=== PATIENT | female | born 1970 | race Caucasian/White ===

== ENCOUNTER 2019-06-12 13:00 | Inpatient (IN) | payer OTHER ==
[~2019-06-12] VITALS: Ht 157.5 cm; Wt 59.0 kg
--- NOTE | 2019-06-12 13:48 | NUR ---
TOOK OVER PT CARE. PT BIB RA, WAS FOUND SLEEPING IN TENT IN ALLEY WITH ETOH NOTED ON BREATH. PLACED ON MONITOR AND PULSE OX. AWAITING MD ORDERS. WILL CONTINUE TO MONITOR. VSS.
[2019-06-12] MEDS ORDERED: IV NS 0.9% 1,000 ML BAG IV ONE (14:00)
--- NOTE | 2019-06-12 14:03 | NUR ---
LABS COLLECTED BY RETAIL STOCK CLERK
[2019-06-12 14:10] LABS: BASOPHILS # (AUTO) 0.1 /CMM (0.0-0.2); BASOPHILS % (AUTO) 1.3 % (0.0-2.0); EOSINOPHILS % (AUTO) 1.1 % (0.0-6.0); HEMATOCRIT 34 % (33-45); LYMPHOCYTES # (AUTO) 1.1 /CMM (0.8-4.8); LYMPHOCYTES % (AUTO) 22.5 % (20.0-44.0); MEAN CORPUSCULAR HGB CONC 33 g/dl (31.0-36.0); MEAN CORPUSCULAR VOLUME 97 fL (82-100); MONOCYTES # (AUTO) 0.5 /CMM (0.1-1.30); MONOCYTES % (AUTO) 10.6 % (2.0-12.0); NEUTROPHILS # (AUTO) 3.3 /CMM (1.8-8.9); NEUTROPHILS % (AUTO) 64.5 % (43.0-81.0); PLATELET COUNT (AUTO) 293 /CMM (150-450); RED BLOOD CELL COUNT(AUTO) 3.48 MIL/uL (4.0-5.2); WHITE BLOOD COUNT (AUTO) 5.1 K/uL (4.3-11.0)
--- NOTE | 2019-06-12 14:13 | NUR ---
URINE COLLECTED AND SENT TO LAB
[2019-06-12 14:19] LABS: APPEARANCE,URINE Clear (CLEAR); BILIRUBIN,URINE Negative (NEGATIVE); BLOOD, URINE Small Ery/uL (NEGATIVE); COLOR,URINE Yellow (YELLOW); KETONES,URINE Negative (NEGATIVE); LEUKOCYTE ESTERASE ,URINE Negative (NEGATIVE); NITRITE, URINE Negative (NEGATIVE); PH,URINE 6.5 (5.0-8.0); PROTEIN,URINE Negative (NEGATIVE); UGLUCOSE Negative (NEGATIVE); UROBILINOGEN,URINE 0.2 EU/dL (0.2)
[2019-06-12 14:24] LABS: CALCIUM, SERUM 8.3 mg/dL (8.5-10.1); CARBON DIOXIDE 28 mmol/L (21-32); CHLORIDE 104 mmol/L (98-107); CREATININE 0.5 mg/dL (0.6-1.3); GLUCOSE 94 mg/dL (74-106); SODIUM SERUM 142 mmol/L (136-145); UREA NITROGEN, BLOOD 12 mg/dL (7-18)
[2019-06-12 14:29] LABS: ALANINE AMINOTRANSFERASE 41 U/L (12-78); ALBUMIN 3.3 g/dL (3.4-5.0); ALCOHOL, BLOOD 477 mg/dL (0-0); ALKALINE PHOSPHATASE 68 U/L (46-116); ASPARTATE AMINOTRANSFERASE 42 U/L (15-37); BILIRUBIN,TOTAL 0.1 mg/dL (0.2-1.0); SALICYLATE 0.7 mg/dL (2.8-20.0); TOTAL PROTEIN, SERUM 7.4 g/dL (6.4-8.2)
[2019-06-12 14:30] LABS: ACETAMINOPHEN 0 ug/ml (10-30)
--- NOTE | 2019-06-12 14:41 | NUR ---
PATIENT AWAKE, NOT GIVING HER NAME. VSS. RESTING COMFORTABLY.
--- NOTE | 2019-06-12 14:42 | NUR ---
PT WAS TRYING TO SPEAK, VERY SLURRED. PT APPEARS TO BE CONFUSED. INCOHERENT.
--- NOTE | 2019-06-12 14:45 | NUR ---
PT STATED HER NAME IS OSKAR MERCADO AND 1970.
[2019-06-12 14:47] LABS: BACTERIA,URINE Few /HPF (None Seen); SQUAMOUS EPITHELIAL CELL,UR Few /HPF (None Seen); WBC,URINE 0-2 /HPF (0-3)
--- NOTE | 2019-06-12 14:48 | NUR ---
PT BROUGHT TO CT
--- NOTE | 2019-06-12 14:59 | NUR ---
PT BACK FROM CT
[2019-06-12] MEDS ORDERED: POTASSIUM CL. PREMIX PERIPHER. 50 ML ONE ×4 (15:27→18:59)
[2019-06-12] MEDS: POTASSIUM CL. PREMIX PERIPHER. 50 ML IV SCH ×4 (15:40→19:05)
--- NOTE | 2019-06-12 15:43 | NUR ---
CALLED DR. PEREZ... ASKED FOR PICS TO BE SENT TO HIM.
--- NOTE | 2019-06-12 16:52 | NUR ---
PT RESTING IN BED, VSS.
--- NOTE | 2019-06-12 17:12 | NUR ---
PT SAT 90% ON ROOM AIR. PLACED ON 2L NC. NO SAT 98%
--- NOTE | 2019-06-12 17:59 | NUR ---
PT AWAKE, PT STATED HER NAME "KARLA MERCADO", YEAR, AND PRESIDENT. S.
[2019-06-12] MEDS ORDERED: ZOLPIDEM TARTRATE 5 MG TABLET PO PRN (18:00)
[2019-06-12] MEDS ORDERED: MAG HYDROX/AL HYDROX/SIMETH 30 ML UDC PO PRN (18:00)
[2019-06-12] MEDS ORDERED: ONDANSETRON HCL/PF 4 MG/2 ML VIAL IVP PRN (18:00)
[2019-06-12] MEDS ORDERED: MAGNESIUM HYDROXIDE 30 ML UDC PO PRN (18:00)
[2019-06-12] MEDS ORDERED: Z GUARD REMEDY 2 OZ OINT TP PRN (18:00)
--- NOTE | 2019-06-12 18:36 | NUR ---
GOT ICU BED 259
--- NOTE | 2019-06-12 19:20 | NUR ---
REPORT GIVEN TO RICH HUYNH FOR [facility]
--- NOTE | 2019-06-12 19:57 | NUR ---
PT TRANSFERED PER [facility]S PROTOCOL.
[2019-06-12 20:00] VITALS: BP 117/76
[2019-06-12] MEDS: IV NS 0.9% 1,000 ML IV SCH (20:03)
--- NOTE | 2019-06-12 20:30 | NUR ---
RN NOTES ADMITTED A 40 YEARS OLD FEMALE PATIENT FROM ER ALERT ORIENTED X 2-3 DX WITH SUBDURAL HEMATOMA WHICH SHOWS FROM CT HEAD. UNDER DR. QURESHI. PATIENT IS MORE AWAKE ABLE TO MENTION NAME "JUANCARLOS WOODY" AND BIRTHDATE WAS 1970. FOLLOWS COMMAND. NSR ON TELE MONITOR. WITH IV SITE ON LAC G 18 AND RAC G 20 INTACT AND PATENT. NEURO CHECKED DONE . PATIENT ABLE TO MOVE BUE AND BLE WITH MILD WEAKNESS IN LE. WANTED TO HAVE DRINKS, INFORMED DR. PEDRO MANAGER HEART REGARDING DIET WILL FOLLOW UP ORDER. KEPT PT CLEAN AND DRY. WILL MONITOR CLOSELY.
[2019-06-12 21:00] VITALS: BP 112/77
[2019-06-12 22:00] VITALS: BP 100/77
[2019-06-12 23:00] VITALS: BP 105/62
[2019-06-13] VITALS (18 sets, daily range): BP systolic 93–138; BP diastolic 53–90
[2019-06-13] MEDS: ACETAMINOPHEN 325 MG TABLET PO PRN ×2 (01:51→22:11)
[2019-06-13] MEDS: IV NS 0.9% 1,000 ML IV SCH (04:07)
[2019-06-13 04:59] LABS: BASOPHILS # (AUTO) 0.1 /CMM (0.0-0.2); BASOPHILS % (AUTO) 2.2 % (0.0-2.0); EOSINOPHILS % (AUTO) 3.8 % (0.0-6.0); HEMATOCRIT 28 % (33-45); HEMOGLOBIN 9.4 g/dL (11.5-14.8); LYMPHOCYTES % (AUTO) 29.2 % (20.0-44.0); MEAN CORPUSCULAR HGB CONC 33 g/dl (31.0-36.0); MEAN CORPUSCULAR VOLUME 97 fL (82-100); MONOCYTES # (AUTO) 0.6 /CMM (0.1-1.30); MONOCYTES % (AUTO) 17.9 % (2.0-12.0); NEUTROPHILS # (AUTO) 1.6 /CMM (1.8-8.9); NEUTROPHILS % (AUTO) 46.9 % (43.0-81.0); PLATELET COUNT (AUTO) 245 /CMM (150-450); RED BLOOD CELL COUNT(AUTO) 2.93 MIL/uL (4.0-5.2); WHITE BLOOD COUNT (AUTO) 3.3 K/uL (4.3-11.0)
[2019-06-13 05:05] LABS: CALCIUM, SERUM 7.9 mg/dL (8.5-10.1); CREATININE 0.5 mg/dL (0.6-1.3); MAGNESIUM 1.4 mg/dL (1.8-2.4); PHOSPHORUS 3.3 mg/dL (2.5-4.9)
--- NOTE | 2019-06-13 06:54 | NUR ---
RN NOTES PATIENT ASLEEP WELL ON BED. MORE RESPONSIVE THAN LAST NIGHT.ATE WELL. REMAINED AOX3. NO ACUTE RESPIRATORY DISTRESS IN ROOM AIR. DENIES PAIN AFTER TAKING TYLENOL FOR HEADACHE. VSS AFEBRILE. INCONTINENT CARE RENDERED. NO DEFICIT SHOWN. CONTINUE ON IVF NS @ 125 ML/HR. NO SIGNIFICANT CHANGES. KEPT PT CLEAN AND DRY. ALL DUE MEDS ADMINISTERED ORDERED. WILL ENDORSED CONTINUITY OF CARE TO AM NURSE.
--- NOTE | 2019-06-13 07:00 | NUR ---
Received report from Abby HUYHN. Patient asleep in bed. VSs within normal limit. Not in distress.
[2019-06-13] MEDS: HYDROCODONE/APAP 5/325MG 1 EACH TABLET PO PRN ×3 (07:44→20:16)
--- NOTE | 2019-06-13 07:55 | NUR ---
Patient complained of right shoulder pain. Medicated with 1 tab [place]. All extremities functioning without difficulty. Will follow up med's response. For CT Head today without contrast.
[2019-06-13] MEDS: Magnesium 1GM/D5W 100ML PREMIX 100 ML IV SCH ×4 (10:37→14:28)
[2019-06-13 11:10] LABS: EOSINOPHILS % (MANUAL) 5 % (0-4); LYMPHOCYTES % (MANUAL) 26 % (16-48); MONOCYTES % (MANUAL) 14 % (0-11.0); NEUTROPHILS % (MANUAL) 55 (42-76)
[2019-06-13] MEDS ORDERED: LORAZEPAM 0.5 MG TABLET PO PRN (11:30)
--- NOTE | 2019-06-13 11:50 | NUR ---
VERIFIED WITH DR. QURESHI-REPEAT HEAD CT CANCELLED BY MD. ANDERSON TO TRANSFER TO MEDICAL FLOOR. NO SIGNIFICANT CHANGES IN PATIENT CONDITON. AWAKE, ALERT AND ORIENTED.
[2019-06-13] MEDS: CHLORDIAZEPOXIDE HCL 25 MG CAPSULE PO SCH ×2 (12:45→20:16)
--- NOTE | 2019-06-13 13:00 | NUR ---
Patient transferred to Med-Surg Bed 323-1. Report given to Camelia Jensen RN. Patient awake and oriented X 3. Able to move all 4 extremities. Given [place] 1 tab for right shoulder pain of 8/10. Right and Left AC IV lines intact and patent. On 2nd bag of Magnesium 1 mg out of 4 doses. NS 0.9% infusing well @ 125 ml /hr.
--- NOTE | 2019-06-13 13:10 | NUR ---
RN NOTES RECEIVED PATIENT FROM ICU REPORT GIVEN BY ROSANNE HUYNH. ALERT ORIENT X 3. NO ACUTE DISTRESS NOTED. BREATHING UNLABORED. IV ACCESS PATENT AND INTACT, NO REDNESS, NO SWELLING NOTED. VITAL SIGNS STABLE. SAFETY MEASURES IN PLACE. CALL LIGHT WITHIN REACH. WILL CONTINUE TO MONITOR ACCORDINGLY.
[2019-06-13] MEDS ORDERED: IV NS 0.9% 1,000 ML IV PRN (15:00)
--- NOTE | 2019-06-13 19:00 | NUR ---
MS RN NOTES PATIENT IN BED ALERT ORIENT X 3. NO ACUTE DISTRESS NOTED. BREATHING UNLABORED. IV ACCESS PATENT AND INTACT, NO REDNESS, NO SWELLING NOTED. NEEDS ATTENDED AND ANTICIPATED. KEPT CLEAN, DRY AND COMFORTABLE. SAFETY MEASURES IN PLACE. CALL LIGHT WITHIN REACH. WILL ENDORSE TO NIGHT NURSE FOR CONTINUITY OF CARE.
--- NOTE | 2019-06-13 19:30 | NUR ---
MS RN OPENING NOTES PATIENT SLEEPING IN BED, EASY TO AWAKEN. A/O X3. ON ROOM AIR. NO S/S OF ACUTE RESPIRATORY DISTRESS AND NO COMPLAINTS OF PAIN AT THIS TIME. PATIENT ABLE TO VERBALIZE NEEDS. IV PRESENT ON LEFT AC, SIZE 18, INTACT & PATENT, HEP LOCKED; IV ON RIGHT FOREARM, SIZE 20, INTACT & PATENT WITH NS RUNNING AT 125ML/HR. BED LOCKED, ALARM ON, SIDE RAILS X2, LOW-WAGNER'S POSITION, CALL LIGHT WITHIN REACH. WILL CONTINUE TO MONITOR.
--- NOTE | 2019-06-13 20:17 | NUR ---
MS RN NOTES PATIENT COMPLAINING OF RIGHT SHOULDER PAIN RATED 7/10. PER PATIENT'S REQUEST, ADMINISTERED PRN [place] 5/325 1 TAB. VITAL SIGNS - BP: 134/81 HR: 85 RR: 19. CALL LIGHT WITHIN REACH. BED LOCKED, ALARM ON, SIDE RAILS X2, CALL LIGHT WITHIN REACH. WILL CONTINUE TO MONITOR.
[2019-06-14] MEDS: CHLORDIAZEPOXIDE HCL 25 MG CAPSULE PO SCH ×2 (05:10→12:23)
[2019-06-14] MEDS: HYDROCODONE/APAP 5/325MG 1 EACH TABLET PO PRN ×3 (05:46→14:25)
--- NOTE | 2019-06-14 07:37 | NUR ---
MS RN CLOSING NOTES PATIENT SLEEPING IN BED, EASY TO AWAKEN. A/O X3. ON ROOM AIR. NO S/S OF ACUTE RESPIRATORY DISTRESS AND NO COMPLAINTS OF PAIN AT THIS TIME. IV PRESENT ON RIGHT AC, SIZE 20, INTACT & PATENT, NS RUNNING AT 125ML/HR. BED LOCKED, ALARM ON, SIDE RAILS X2, CALL LIGHT WITHIN REACH. WILL ENDORSE TO DAY SHIFT NURSE TO FOLLOW PLAN OF CARE.
[2019-06-14 08:00] VITALS: BP 138/68
[2019-06-14 08:54] LABS: CALCIUM, SERUM 8.4 mg/dL (8.5-10.1); CREATININE 0.6 mg/dL (0.6-1.3); MAGNESIUM 1.6 mg/dL (1.8-2.4); POTASSIUM 3.5 mmol/L (3.5-5.1)
[2019-06-14] MEDS ORDERED: THIAMINE HCL 100 MG TABLET PO SCH (09:00)
[2019-06-14] MEDS ORDERED: FOLIC ACID 1 MG TABLET PO SCH (09:00)
[2019-06-14] MEDS ORDERED: MULTIVITAMINS,THERAGRAN 1 UDTAB TABLET PO SCH (09:00)
[2019-06-14] MEDS ORDERED: MAGNESIUM OXIDE 400 MG TABLET PO ONE (11:30)
[2019-06-14] MEDS ORDERED: POLYVINYL ALCOHOL 15 ML BOTTLE EACHEYE PRN (12:30)
--- NOTE | 2019-06-14 15:00 | NUR ---
Patient [facility]c to [facility] due [facility] by MD and medically stable. Patient alert and oriented x3, stable on room air with VS WNR. [facility] information and T[facility] card provided; patient states ; "I will go to [facility]". Discharge instructions and education provided and pt verbalized understanding.Prescription provided to patient. All needs attended. IV line and ID wrist band removed. Patient sighed valuable form and all belongings with the patient. Patient sighed homeless waiver form. PAtient safely transferred [facility] via wheelchair accompanied by nurse.
== END 2019-06-14 15:00 | disposition home or self-care (01) | DRG 55 ==
LOC: ER 13:03 → EDBD 18:43 → ICU 18:43 → MED 06-13 12:53
PROVIDERS: ADMIT Internal Medicine; ATTEND Internal Medicine
DX: S06.5X0A Traumatic subdural hemorrhage without loss of consciousness, initial encounter (principal); E43 Unspecified severe protein-calorie malnutrition; G92 Toxic encephalopathy; F10.129 Alcohol abuse with intoxication, unspecified; D63.8 Anemia in other chronic diseases classified elsewhere; E87.6 Hypokalemia; Z59.0 Homelessness; R40.2413 Glasgow coma scale score 13-15, at hospital admission; Y90.8 Blood alcohol level of 240 mg/100 ml or more; E88.09 Other disorders of plasma-protein metabolism, not elsewhere classified; Z68.23 Body mass index [BMI] 23.0-23.9, adult; X58.XXXA Exposure to other specified factors, initial encounter; Y93.9 Activity, unspecified; Y92.89 Other specified places as the place of occurrence of the external cause
CPT/HCPCS: 36415; 70450-TC; 71045-TC; 72125-TC; 80048-TC; 80076-TC; 80305; 81000-TC; 82962-TC; 83735-TC; 84100-TC; 84484-TC; 84702-TC; 85025-TC; 87081-TC; G0378; G0480; J3475; J3480; J7030